=== PATIENT | female | born 1990 | race Native Hawaiian/Other Pacific Islander ===

== ENCOUNTER 2023-05-21 10:15 | Outpatient (CLI) | payer OTHER | END 2023-05-21 20:19 | disposition home or self-care (01) | LOC: LABW 10:15 | PROVIDERS: ATTEND Obstetrics & Gynecology | DX: N91.2 Amenorrhea, unspecified (principal) | CPT/HCPCS: 36415; 84702 ==

== ENCOUNTER 2023-05-23 09:48 | Outpatient (CLI) | payer OTHER | END 2023-05-23 21:20 | disposition home or self-care (01) | LOC: LABW 09:48 | PROVIDERS: ATTEND Obstetrics & Gynecology | DX: N91.2 Amenorrhea, unspecified (principal) | CPT/HCPCS: 36415; 84702 ==